=== PATIENT | female | born 1955 | race Caucasian/White ===

== ENCOUNTER 2023-09-07 11:15 | Day surgery (SDC) | payer MEDICARE, BC, OTHER ==
[~2023-09-07] VITALS: Ht 142.2 cm; Wt 51.1 kg
[~2023-09-07 11:15] MED LIST: FLUO40CA PO; NS 1,000 ML IV ONE; TOPA100T12 PO; VITMTA PO; [UNRECOGNIZED DRUG - OTHER] PO
[2023-09-07] MEDS ORDERED: LIDOCAINE 2% 100MG/5ML SDV (FOR ANES.) As Ordered ONE (12:54)
[2023-09-07] MEDS ORDERED: propofoL 200 MG/20 ML VIAL As Ordered ONE (12:54)
[2023-09-07] MEDS ORDERED: ePHEDrine SULFATE 25 MG/5 ML(5MG/ML) SYRINGE As Ordered ONE (13:38)
[2023-09-07 13:41] VITALS: TEMP 97.8
[2023-09-07 14:10] VITALS: BP 111/52; O2SAT 100
== END 2023-09-07 14:20 | disposition home or self-care (01) ==
LOC: M OPP 11:15
PROVIDERS: ATTEND Internal Medicine Gastroenterology
DX: K63.89 Other specified diseases of intestine (principal); K64.4 Residual hemorrhoidal skin tags; K64.8 Other hemorrhoids; K31.89 Other diseases of stomach and duodenum; K29.70 Gastritis, unspecified, without bleeding; K30 Functional dyspepsia; Z98.84 Bariatric surgery status; Z87.891 Personal history of nicotine dependence; Z79.83 Long term (current) use of bisphosphonates; Z79.899 Other long term (current) drug therapy